=== PATIENT | female | born 1960 | race Hispanic/Latino ===

== ENCOUNTER 2018-02-10 10:35 | Emergency (ER) | payer OTHER ==
[2018-02-10 10:42] VITALS: BP 165/82; PULSE 85; RESP 16; TEMP 99; BMI 28.1
[2018-02-10 10:48] VITALS: O2SAT 98
--- NOTE | 2018-02-10 11:01 | ED PDOC ---
HPI: Female Pain Time Seen by Provider: 02/10/18 10:44 Chief Complaint (Nursing): Abdominal Pain Chief Complaint (Provider): Vaginal bleeding History Per: Patient History/Exam Limitations: no limitations Onset/Duration Of Symptoms: Days (December 09, 2017) Current Symptoms Are (Timing): Still Present Additional Complaint(s): Pt. with vaginal bleed since December 09, 2017. Has had vaginal bleeding for long periods for long time. In [facility] she got medicine for it and got transfusions with iron. Here for 1 year and taking the same medicine. Seen by OBGYN some time ago and told to continue the medicine. Went to the clinic yesterday and had blood work done. Pt. with mild light-headedness with the bleeding. No weakness, dizziness, headaches, dyspnea, fever, cough, abd pain, pelvic pain. No chest pain. No leg pain, dysuria. Past Medical History Reviewed: Nursing Documentation, Vital Signs Vital Signs: Last Vital Signs Temp 99.0 F 02/10/18 10:41 Pulse 85 02/10/18 10:41 Resp 16 02/10/18 10:41 BP 165/82 H 02/10/18 10:41 Pulse Ox 98 02/10/18 10:46 - Medical History PMH: Diabetes, HTN Other PMH: vaginal bleeding; anemia - Surgical History Surgical History: No Surg Hx - Family History Family History: States: Unknown Family Hx - Living Arrangements Living Arrangements: With Family - Home Medications Home Medications: Ambulatory Orders Medication Instructions Recorded Folic Acid/Mv,Iron,Min [Ra One 1 tab PO DAILY 02/10/18 Daily Maximum Tablet] MedroxyPROGESTERone [Provera] 20 mg PO DAILY 02/10/18 Metformin HCl [Glucophage] 1,000 mg PO BID 02/10/18 Nebivolol [Bystolic] 5 mg PO DAILY 02/10/18 - Allergies Allergies/Adverse Reactions: Allergies Allergy/AdvReac Type Severity Reaction Status Date / Time No Known Allergies Allergy Verified 02/10/18 10:45 Review of Systems ROS Statement: Except As Marked, All Systems Reviewed And Found Negative Genitourinary Female: Positive for: Vaginal Bleeding Neurological: Positive for: Dizziness Physical Exam - Reviewed Nursing Documentation Reviewed: Yes Vital Signs Reviewed: Yes - Physical Exam Appears: Positive for: Non-toxic, No Acute Distress Head Exam: Positive for: ATRAUMATIC, NORMAL INSPECTION, NORMOCEPHALIC Skin: Positive for: Normal Color, Warm, DRY Eye Exam: Positive for: EOMI, Normal appearance, PERRL ENT: Positive for: Normal ENT Inspection Neck: Positive for: Normal, Painless ROM Cardiovascular/Chest: Positive for: Regular Rate, Rhythm Respiratory: Positive for: CNT, Normal Breath Sounds Gastrointestinal/Abdominal: Positive for: Normal Exam, Soft. Negative for: Tenderness Pelvic Exam: Positive for: External Exam Normal. Negative for: Speculum Exam Normal (mild dark blood from cervix), Discharge, Tender W/Cervical Motion, Tender Adnexa, Tender Uterus Back: Positive for: Normal Inspection. Negative for: L CVA Tenderness, R CVA Tenderness Extremity: Positive for: Normal ROM Neurologic/Psych: Positive for: Alert, digital sales director II-XII, Oriented. Negative for: Motor/Sensory Deficits, Aphasia, Facial Droop - ECG O2 Sat by Pulse Oximetry: 98 Pulse Ox Interpretation: Normal - CT Scan/US US Other Rad Studies (CT/US): Read By Radiologist Other Rad Interpretation: fibroids - Progress ED Course And Treament: 1353: Stable. AAOx3. Fu with clinic. Disposition - Clinical Impression Clinical Impression: Fibroids - Patient ED Disposition Is Patient to be Admitted: No Counseled Patient/Family Regarding: Studies Performed, Diagnosis, Need For Followup - Disposition [facility] - [facility]18 Disposition: Routine/Home Disposition Time: 13:54 Condition: STABLE Additional Instructions: Return if not better in 3 days. Instructions: Uterine Fibroids
--- NOTE | 2018-02-10 13:51 | US ---
HISTORY: vaginal bleeding COMPARISON: None available. TECHNIQUE: Grayscale, color Doppler and spectral evaluation the pelvis performed transabdominally and transvaginally FINDINGS: UTERUS: Measures 11.0 x 7.1 x 6.1 cm. Anteverted. Normal in size and appearance. Posterior lower uterine segment fibroid measuring 1.5 x 1.2 x 1.5 cm. Adjacent posterior to the right lower uterine segment fibroid measuring 2.4 x 1.9 x 2.0 cm. Posterior fundal fibroid measuring 2.7 x 3.2 by 1.6 cm. Submucosal fibroid measured 1.4 x 1.2 x 1.2 cm. Additional submucosal fibroid measuring 1.1 x 1.1 x 1.2 cm. Fundal subserosal fibroid measured 1.7 x 1.7 x 1.7 cm. ENDOMETRIUM: Measures 3 mm in diameter. Unremarkable. CERVIX: Multiple nabothian cysts. No cervical abnormality identified. RIGHT OVARY: Measures 2.4 x 2.3 x 1.5 cm. No solid mass. Normal flow. LEFT OVARY: Measures 3.6 x 3.2 x 2.7 cm. Cyst measuring 2.8 x 2.2 x 2.2 cm. Normal flow. FREE FLUID: No significant free fluid noted. OTHER FINDINGS: None. IMPRESSION: Multiple uterine fibroids as described above, the largest which measures up to 3.2 cm. Unremarkable endometrium. Cervix long and closed. No free fluid.
== END 2018-02-10 14:03 | disposition home or self-care (01) ==
LOC: H.ER 10:35
DX: D25.9 Leiomyoma of uterus, unspecified (principal); E11.9 Type 2 diabetes mellitus without complications; I10 Essential (primary) hypertension